=== PATIENT | female | born 1990 | race Hispanic/Latino ===

== ENCOUNTER 2018-07-25 21:08 | Emergency (ER) | payer OTHER ==
[2018-07-25 21:20] VITALS: O2SAT 99
[2018-07-25] MEDS ORDERED: Oxycodone/Acetaminophen 5/325 mg Tab PO STA (21:25)
[2018-07-25] MEDS ORDERED: Oxycodone/Acetaminophen 5/325 mg Tab ONE (21:40)
--- NOTE | 2018-07-25 21:54 | ED PDOC ---
Upper Extremity Pain/Injury Time Seen by Provider: 07/25/18 21:20 Chief Complaint (Nursing): Finger,Hand,&Wrist Chief Complaint (Provider): Left wrist pain History Per: Patient History/Exam Limitations: no limitations Onset/Duration Of Symptoms: Hrs Current Symptoms Are (Timing): Still Present Additional Complaint(s): 27 year old female presents to the ED stating, earlier today, she was ice skating and slipped and fell with outstretched left hand. Patient reports she injured her left wrist. She states she sustained a fracture to that wrist when she was 12 which did not require surgery. Denies numbness or tingling. PMD: none provided Past Medical History Reviewed: Historical Data, Nursing Documentation, Vital Signs Vital Signs: Last Vital Signs Temp 98.3 F 07/25/18 21:17 Pulse 92 H 07/25/18 21:17 Resp 16 07/25/18 21:17 BP 145/85 07/25/18 21:17 Pulse Ox 99 07/25/18 21:17 - Medical History PMH: No Chronic Diseases - Surgical History Surgical History: No Surg Hx - Family History Family History: States: Unknown Family Hx - Home Medications Home Medications: Ambulatory Orders Medication Instructions Recorded Acetaminophen with Codeine 1 each PO Q4 PRN #1 tablet 07/25/18 [Tylenol with Codeine #3 Tablet] - Allergies Allergies/Adverse Reactions: Allergies Allergy/AdvReac Type Severity Reaction Status Date / Time Penicillins Allergy RASH Verified 07/25/18 21:17 Review of Systems ROS Statement: Except As Marked, All Systems Reviewed And Found Negative Musculoskeletal: Positive for: Other (Left wrist pain) Neurological: Negative for: Numbness (or tingling) Physical Exam - Reviewed Nursing Documentation Reviewed: Yes Vital Signs Reviewed: Yes - Physical Exam Appears: Positive for: In Acute Distress (Moderate painful distress) Pulses-Radial (L): 2+ Pulses-Radial (R): 2+ Extremity: Positive for: Tenderness (dorsum of left wrist), Swelling (mild swelling to dorsum of left wrist). Negative for: Deformity (to dorsum of left wrist) - ECG O2 Sat by Pulse Oximetry: 99 (RA) Pulse Ox Interpretation: Normal - Radiology X-Ray: Interpreted by Me (wrist x-ray) X-Ray Interpretation: Other (comminuted distal radius fx) - Progress ED Course And Treament: Pt. informed of x-ray results. States she lives in [place] and prefers to see an orthopedist in town as she does not have access to a car. Case d/w marek Fernández, who viewed x-rays and states he will see patient on Saturday at 10:00am. Pt. informed of plan and agrees with care. Pt. searched on [place] [employer] Aware and shows no previous narcotic rx. Informed of risk of dependency with narcotics. Pt. verbalized understanding. Also told to take tylenol or motrin first and to only use Tylenol #3 for breakthrough pain. Medical Decision Making Medical Decision Making: Initial Impression: Left wrist pain Initial Plan: --Left wrist X-ray --Percocet 1 tab PO Scribe Attestation: Documented by Acosta Lagos acting as a scribe for Shubham TURK Provider Scribe Attestation: All medical record entries made by the Scribe were at my direction and personally dictated by me. I have reviewed the chart and agree that the record accurately reflects my personal performance of the history, physical exam, medical decision making, and the department course for this patient. I have also personally directed, reviewed, and agree with the discharge instructions and disposition. Procedures - Time-Out Type of Procedure: splint placement Site of Procedure: L arm Correct Patient: Yes Correct Procedure: Yes Correct Site Marked: Yes X-Ray Marked: Yes PA/Tech: Tamir GONZÁLES - Splinting Location: L arm Hand-Made Type: orthoglass Splint: sugar-tong Pre-Proc Neuro Vasc Exam: normal Post-Proc Neuro Vasc Exam: normal Progress: Sling applied. Disposition - Clinical Impression Clinical Impression: Wrist fracture - Patient ED Disposition Is Patient to be Admitted: No - Disposition Referrals: Morgan Can MD [Medical Doctor] - Disposition: Routine/Home Disposition Time: 22:54 Condition: STABLE Additional Instructions: FOLLOW UP WITH DR. CAN ON SATURDAY AT 10:00AM WITHOUT FAIL RETURN TO ED IMMEDIATELY IF SYMPTOMS WORSEN [place], thank you for letting us take care of you today. Your provider was Gia Waite MD and you were treated for LT WRIST PAIN. The emergency medical care you received today was directed at your acute symptoms. If you were prescribed any medication, please fill it and take as directed. It may take several days for your symptoms to resolve. Return to the Emergency Department if your symptoms worsen, do not improve, or if you have any other problems. Please contact your doctor or call one of the physicians/clinics you have been referred to that are listed on the Patient Visit Information form that is included in your discharge packet. Bring any paperwork you were given at discharge with you along with any medications you are taking to your follow up visit. Our treatment cannot replace ongoing medical care by a primary care provider outside of the emergency department. Thank you for allowing the [facility] team to be part of your care today. If you had an X-Ray or CT scan: A Radiologist will review the ED reading if any change in treatment is needed we will contact you. If you had a blood, urine, or wound culture: It will take several days for the results, if any change in treatment is needed we will contact you. If you had an STI test: It will take 48 hours for the results. Please call after 1 week if you have not heard back. Prescriptions: Acetaminophen with Codeine [Tylenol with Codeine #3 Tablet] 1 each PO Q4 PRN #1 tablet PRN Reason: breakthrough pain Instructions: Wrist Fracture (DC) Forms: [facility] (Spanish), [facility] ED School/Work Excuse Print Language: SAUDI ARABIAN
[2018-07-25 23:02] VITALS: BP 122/70; PULSE 78; RESP 18; TEMP 98
--- NOTE | 2018-07-26 09:27 | RAD ---
Date of service: 07/25/2018 PROCEDURE: Left Wrist Radiographs. HISTORY: trauma COMPARISON: None. FINDINGS: Left upper extremity cast limits evaluation of fine bony detail. There is a relatively nondisplaced comminuted distal radial fracture that extends to the radiocarpal articulation. IMPRESSION: Casted views of a in intra-articular distal radial fracture.
== END 2018-07-25 23:01 | disposition home or self-care (01) ==
LOC: H.ER 21:08
DX: S52.572A Other intraarticular fracture of lower end of left radius, initial encounter for closed fracture (principal); W19.XXXA Unspecified fall, initial encounter; Y92.89 Other specified places as the place of occurrence of the external cause